=== PATIENT | female | born 1960 | race Caucasian/White ===

== ENCOUNTER 2018-08-30 10:15 | Observation (INO) | payer OTHER, MEDICAID ==
[2018-08-28 16:32] VITALS: BMI 28.2
--- NOTE | 2018-08-29 15:46 | PREOPHP ---
DATE OF ADMISSION: 08/30/2018 Scheduled for surgery, 08/30/2018. HISTORY OF PRESENT ILLNESS: The patient is a 58-year-old female in stable health, who presented rece ntly with a 2-month history of left breast mass at 12 o'clock above the areolar border. 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 The tumor is estrogen and progesterone receptor positive and HER-2 negative. She is julien eduled to undergo left breast partial mastectomy with left axillary sentinel lymph node biopsy. MEDICATIONS: 1. Glimepiride. 2. Lisinopril. 3. Metformin. 4. Statin. 5. Aspirin 81 mg. ALLERGIES: NONE. OPERATIONS: In 2013, left breast biopsy for bleeding from the left nipple which subsequently resolve d and she underwent cholecystectomy in 1993. REVIEW OF SYSTEMS: The patient has lupus, not currently requiring any medical treatment. OBSTETRIC AND GYNECOLOGIC HISTORY: She is 7, para 5. Her last menstrual period was in 2011. PHYSICAL EXAMINATION: The breasts are medium in size. The right breast is unremarkable. The left b reast has a 2 cm mass above the areola at 12 o'clock, midway between the nipple and periphery. There was no involvement of the nipple areolar complex. There was no palpable axillary or supraclavicular lymphadenopathy. 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 PLAN: Left breast partial mastectomy with left axillary sentinel lymph node biopsy. I have had a fu ll discussion with the patient regarding the nature of the condition, the nature of the surgery, sruthi cations, alternatives, options and risks including bleeding, infection, injury to adjacent structures or organs, neuritis or neuralgia, scarring, deformity of the breast and/or nipple, need for addition al surgery based on final pathology, need for additional treatments based on final pathology, et cete ra. The patient understands and agrees to proceed. Dictated By: ROSARIO METCALF/GREG Conf#: [id number] DID#: [id number]
[2018-08-30] VITALS (23 sets, daily range): BP systolic 104–125; BP diastolic 49–71; PULSE 65–88; RESP 11–23; Ht 144.8 cm; Wt 59.5 kg
[~2018-08-30] VITALS: Ht 144.8 cm; Wt 59.5 kg
[~2018-08-30 10:15] MED LIST: CEFAZOLIN 1 GM/50 ML (PMX) 50 ML IVPB SCH; SOD CHLORIDE 0.9% 1,000 ML IV SCH
--- NOTE | 2018-08-30 11:00 | HPN ---
Date/Time of Note Date/Time of Note DATE: 08/30/18 TIME: 11:00 Interval H&P Admission Note Pt. seen H&P reviewed: No system changes ROSARIO YOUNGBLOOD Aug 30, 2018 11:00
[2018-08-30] MEDS ORDERED: GLIM1TAB2 PO (11:16)
[2018-08-30] MEDS ORDERED: LISI10TA2 PO (11:17)
[2018-08-30] MEDS ORDERED: METF100010 PO (11:17)
[2018-08-30] MEDS ORDERED: ASPI81TA52 PO (11:18)
[2018-08-30] MEDS ORDERED: PRAV20TA63 PO (11:18)
[2018-08-30] MEDS ORDERED: ISOSULFAN BLUE 1% 5 ML INJ SC ONE ×2 (12:12→12:23)
--- NOTE | 2018-08-30 12:27 | PREAC ---
Date/Time of Note Date/Time of Note DATE: 08/30/18 TIME: 12:26 Anesthesia Eval and Record Evaluation Time Pre-Procedure Interview DATE: 08/30/18 TIME: 12:26 Age 58 Sex female NPO: 8 hrs Preoperative diagnosis Left breast CA Planned procedure Left partial mastectomy, axillary sentinel lymph node biosp Past Medical History Past Medical History: Includes Cardio: HTN, Dyslipidemia Endo: Diabetes Surgery & Anesthesia Issues No known issue Meds Anticoagulation: No Beta Valery within 24 hr: No Reason Beta Valery not given: Pt. not on B-Valery Reported Medications Pravastatin Sodium* (Pravastatin Sodium*) 20 Mg Tablet, 20 MG PO HS, TAB 08/30/18 Aspirin (Low Dose Aspirin) 81 Mg Tablet.dr, 81 MG PO DAILY, #30 TAB 08/30/18 Metformin Hcl* (Metformin Hcl*) 1,000 Mg Tablet, 1000 MG PO WITH BREAKFAST DINNE, #60 TAB 08/30/18 Lisinopril* (Lisinopril*) 10 Mg Tablet, 10 MG PO DAILY, #30 TAB 08/30/18 Glimepiride* (Glimepiride*) 1 Mg Tablet, 1 MG PO WITH BREAKFAST, TAB 08/30/18 Current Medications Sodium Chloride 1,000 ml @ 75 mls/hr [id number] IV ; Start 08/30/18 at 06:00; Stop 08/30/18 at 19:19 Cefazolin Sodium 50 ml @ 100 mls/hr PREOP IVPB ; Start 08/30/18 at 06:00; Stop 08/30/18 at 16:00 Meds reviewed: Yes Allergies Coded Allergies: No Known Allergy (Unverified , 08/30/18) Allergies Reviewed: Yes Labs/Studies Labs Reviewed: Reviewed by anesthesiologist test: N/A Pre-procedure Exam Last vitals Vital Signs Date Temp Pulse Resp B/P (MAP) Pulse Ox O2 O2 Flow FiO2 Time Delivery Rate 08/30/18 98.2 65 16 107/57 98 Room Air 11:09 (74) Airway: Adequate mouth opening Mallampati: Mallampati I Teeth: Normal Lung: Normal Heart: Normal ASA Physical Status ASA physical status: 2 Emergency: None Planned Anesthetic General/MAC: LMA Planned Pain Management Parenteral pain med Pre-operative Attestations Prior to commencing anesthesia and surgery, the patient was re-evaluated, there was verification of: *The patient's identity *The results of appropriate recent lab work and preoperative vital signs *The above evaluation not changing prior to induction *Anesthetic plan, risk benefits, alternative and complications discussed with patient/family; questions answered; patient/family understands, accepts and wishes to proceed. LUCILA ADAM MD Aug 30, 2018 12:27
[2018-08-30] MEDS ORDERED: MEPERIDINE 100 MG INJ ONE (12:40)
[2018-08-30] MEDS ORDERED: PROPOFOL 20 ML ONE (12:40)
[2018-08-30] MEDS ORDERED: CEFAZOLIN 1 GM INJ ONE (12:40)
[2018-08-30] MEDS ORDERED: ONDANSETRON 4 MG INJ ONE (12:40)
[2018-08-30] MEDS ORDERED: LIDOCAINE 2% (SDV) 5 ML INJ ONE (12:40)
[2018-08-30] MEDS ORDERED: METOCLOPRAMIDE 10 MG INJ ONE (12:40)
--- NOTE | 2018-08-30 14:20 | SIPON ---
Date/Time of Note Date/Time of Note DATE: 08/30/18 TIME: 14:18 Operative Report Preoperative Diagnosis invasive ductal carcinoma left breast Postoperative Diagnosis same Operation/Procedure Performed left breast partial mastectomy and left axillary sentinel lymph node biopsy Surgeon see signature line customer assistance representative none Anesthesia: general Estimated blood loss: minimal Transfusion Required none Specimen left breast tissue and left axillary lymph nodes Grafts/Implants none Complications none ROSARIO YOUNGBLOOD Aug 30, 2018 14:20
[2018-08-30] MEDS ORDERED: LABETALOL HCL 20MG INJ IV PRN (14:30)
[2018-08-30] MEDS ORDERED: DIPHENHYDRAMINE 25 MG CAP PO PRN (14:30)
[2018-08-30] MEDS ORDERED: OXYCODONE/ACETAMINOPHEN (5/325) TAB PO PRN ×2 (14:30)
[2018-08-30] MEDS ORDERED: METOCLOPRAMIDE 10 MG INJ IV PRN (14:30)
[2018-08-30] MEDS ORDERED: ONDANSETRON 4 MG INJ IV PRN ×2 (14:30)
[2018-08-30] MEDS ORDERED: HYDROmorphONE 1 MG/ML SYG SC PRN (14:30)
[2018-08-30] MEDS ORDERED: MIDAZOLAM 1 MG/ML 2 ML INJ IV PRN (14:30)
[2018-08-30] MEDS ORDERED: hydrALAzine 20 MG INJ IV PRN (14:30)
[2018-08-30] MEDS ORDERED: HYDROmorphONE 1 MG/5 ML IV SYRINGE IV PRN ×3 (14:30)
[2018-08-30] MEDS ORDERED: ACETAMINOPHEN 325 MG TAB PO PRN (14:30)
[2018-08-30] MEDS ORDERED: DIPHENHYDRAMINE 50 MG INJ IV PRN (14:30)
[2018-08-30] MEDS ORDERED: MEPERIDINE 25 MG INJ IV PRN (14:30)
[2018-08-30] MEDS ORDERED: EPHEDrine SULFATE 50 MG/5 ML SYG IV PRN (14:30)
[2018-08-30] MEDS ORDERED: CEFAZOLIN 3 GM in SOD CHLORIDE 0.9% 100 ML IVPB SCH (14:30)
[2018-08-30] MEDS ORDERED: FENTAnyl 50 MCG/ML VIAL IV PRN ×3 (14:30)
[2018-08-30] MEDS ORDERED: HYDR200T5 PO (15:10)
--- NOTE | 2018-08-30 15:10 | PAC ---
Date/Time of Note Date/Time of Note DATE: 08/30/18 TIME: 15:10 Post-Anesthesia Notes Post-Anesthesia Note Last documented vital signs Vital Signs Date Temp Pulse Resp B/P (MAP) Pulse Ox O2 O2 Flow FiO2 Time Delivery Rate 08/30/18 80 11 114/61 98 Nasal 2.0 14:56 (78) Cannula 08/30/18 98.3 14:25 Activity: WNL Respiratory function: WNL Cardiovascular function: WNL Mental status: Baseline Pain reasonably controlled: Yes Hydration appropriate: Yes Nausea/Vomiting absent: Yes Comments BT: 98.4 LUCILA ADAM MD Aug 30, 2018 15:10
[2018-08-30] MEDS: D5W-0.45 NACL + KCL 20 MEQ 1,000 ML IV SCH (16:52)
[2018-08-30] MEDS: CEFAZOLIN 1 GM/50 ML (PMX) 50 ML IVPB SCH (17:27)
[2018-08-30] MEDS: HYDROCODONE/APAP (5/325) TAB PO PRN (18:53)
--- NOTE | 2018-08-30 19:30 | OPR ---
DATE OF OPERATION: 08/30/2018 SURGEON: Rosario Borges MD CRM ARCHITECT: None. ANESTHESIOLOGIST: Lucas Lazaro MD ANESTHESIA: General. PREOPERATIVE DIAGNOSIS: Invasive ductal carcinoma, left breast. POSTOPERATIVE DIAGNOSIS: Invasive ductal carcinoma, left breast. OPERATION PERFORMED: Left breast partial mastectomy and left axillary sentinel lymph node biopsy with limited lower level lymph node dissection. DESCRIPTION OF PROCEDURE: The patient was taken to the operating room and under general anesthesia with sequential compression device stockings in place, she was prepped and draped in the usual fashion after first injecting 3 mL of Lymphazurin at 2 o' clock at the areolar border. The left arm was included in the sterile field. A transverse left axillary incision was made achieving hemostasis with cautery and incising the clavipectoral fascia. The sentinel lymph node was readily identified and resected using the LigaSure electrosurgical device. Palpation revealed another prominent lymph node and a lower level dissection was performed with both specimens given to pathology. Touch prep of the sentinel node revealed metastatic cancer. The field was irrigated. Hemostasis was secured. Through a separate stab incision inferolaterally a 19 mm Paul drain was placed into the axilla and sutured to the skin with a 2-0 nylon skin suture. The clavipectoral fascia was closed with interrupted 3-0 Vicryl and the subcutaneous tissue was closed with interrupted 3-0 Vicryl. The skin was closed with continuous 5-0 Monocryl subcuticular suture. Attention was then directed to the breast where there was a 2 cm mass between 12 and 1 o'clock above the areolar border of the left breast. A transverse curvilinear incision was made achieving hemostasis with cautery. Flaps were dissected circumferentially and a wide excision was performed. The specimen was oriented with suture markers anterior, medial and superior. Margins were grossly clear. The field was irrigated and hemostasis was thoroughly secured with cautery. The Incision was closed with interrupted 3-0 Vicryl deep dermal subcutaneous sutures followed by continuous 4-0 Monocryl subcuticular suture. Mastisol and 1/2-inch Steri-Strips were applied to both incisions followed by dry sterile dressings. Final sponge and needle counts were correct. The patient tolerated the procedure well and left the operating room in stable condition. Dictated By: ROSARIO METCALF/GREG Conf#: [id number] DID#: [id number] MTDD
[2018-08-31 00:10] VITALS: BP 100/54; PULSE 77; RESP 18
[2018-08-31] MEDS: D5W-0.45 NACL + KCL 20 MEQ 1,000 ML IV SCH ×2 (00:20→01:22)
[2018-08-31] MEDS: CEFAZOLIN 1 GM/50 ML (PMX) 50 ML IVPB SCH ×2 (01:19→09:47)
[2018-08-31] MEDS: HYDROCODONE/APAP (5/325) TAB PO PRN ×2 (07:01→12:49)
[2018-08-31 08:17] VITALS: BP 92/60; PULSE 82; RESP 18
[2018-08-31] MEDS ORDERED: HYDROXYCHLOROQUINE 200 MG TAB PO SCH (10:00)
[2018-08-31] MEDS ORDERED: LISINOPRIL 10 MG TAB PO SCH (10:00)
[2018-08-31] MEDS ORDERED: GLUCAGON 1 MG INJ IM PRN (10:30)
[2018-08-31] MEDS ORDERED: GLUCOSE GEL 15 GRAM TUBE BUCCAL PRN (10:30)
[2018-08-31] MEDS ORDERED: GLUCOSE GEL 15 GRAM TUBE PO PRN ×2 (10:30)
[2018-08-31] MEDS ORDERED: DEXTROSE 50% 50 ML SYRINGE IV PRN ×2 (10:30)
[2018-08-31] MEDS ORDERED: ACCU-CHEK XX SCH ×2 (11:10)
--- NOTE | 2018-08-31 14:37 | PN ---
DATE: 08/31/2018 Postop day #1 status post left breast needle localized partial mastectomy and axillary dissection. SUBJECTIVE: No complaint. Has been out of bed and walk around, has tolerated diet. OBJECTIVE: GENERAL: Awake, alert, oriented x3. VITAL SIGNS: Temperature maximum today 99, heart rate fluctuating between 77 and 82, respiration 18, blood pressure 100/54, saturation 97% on 2-liter nasal cannula. EXTREMITIES: The patient has full range of motion of the left hand and arm. SKIN: Dressing is intact. It was checked. There is no oozing. It is not too tight. LABORATORY DATA: No labs done today. INPUT AND OUTPUT: There is a Paul drainage in the left breast cavity. From yesterday time of operation until today morning 7:00 it has drained only 30 mL serosanguineous fluid. IMPRESSION AND PLAN: Therefore, the patient can be discharged home to be followed by Dr. Borges, in Katerina's office. Prescription has been written and is in the chart. Also instruction for followup is in an envelope in the chart. The patient is to call Dr. Borges's office and make an appointment for followup. Dictated By: BEBO CASEY MD PS/NTS Conf#: [id number] DID#: [id number] CC: ROSARIO BORGES MD;*EndCC* MTDD
[2018-08-31] MEDS ORDERED: metFORMIN 500 MG TAB PO SCH (17:55)
[2018-09-01] MEDS ORDERED: GLIMEPIRIDE 2 MG TAB PO SCH (07:20)
== END 2018-08-31 15:20 | disposition home or self-care (01) ==
LOC: SDS 10:15 → INTOOBSV 15:42 → REC 15:42 → MS1 15:52
PROVIDERS: ADMIT Surgery; ATTEND Surgery
DX: C50.912 Malignant neoplasm of unspecified site of left female breast (principal); C77.3 Secondary and unspecified malignant neoplasm of axilla and upper limb lymph nodes
CPT/HCPCS: 19301; 38525; 38900; 82962; 88307; 88331; 99217; G0378; J0690; J2175; J2405; J2765; J3010; J3480; Q9968